=== PATIENT | female | born 1965 | race Hispanic/Latino ===

== ENCOUNTER → 2023-06-29 | Outpatient (CLI) | payer OTHER ==
[2023-06-29 22:02] VITALS: PULSE 70; RESP 18
[2023-06-29 22:30] VITALS: PULSE 68; RESP 20
[2023-06-29 23:00] VITALS: PULSE 64; RESP 22
[2023-06-29 23:30] VITALS: PULSE 72; RESP 24
[2023-06-30] VITALS (11 sets, daily range): PULSE 62–72; RESP 12–26
== END | disposition home or self-care (01) ==
LOC: SLP 20:13
PROVIDERS: ATTEND Internal Medicine Cardiovascular Disease
DX: G47.33 Obstructive sleep apnea (adult) (pediatric) (principal)
CPT/HCPCS: 95811